=== PATIENT | female | born 1995 | race Caucasian/White ===

== ENCOUNTER → 2019-09-03 | Day surgery (SDC) | payer BC ==
[~2019-09-03] VITALS: Ht 157.5 cm; Wt 67.0 kg
[2019-09-03] VITALS (10 sets, daily range): BP systolic 104–119; BP diastolic 59–88
[~2019-09-03] MED LIST: ACET-1008 PO; BUPIVAcaine/PF 2.5 mg/ml (0.25%) 30ml vial ONE; HYDROcodone/acetaminophen 10/325mg tab PO ONE; HYDROmorphone inj. 0.5 MG/0.5 ML DISP.SYRIN IV PRN; IBUP-24 PO; LIDOcaine 2% (20mg/ml) 5ml vial ONE; acetaminophen 1,000mg/100ml IV 100 ML IV ONE; cefazolin/dext.iso 2gm/50ml 50 ML IV ONE; dexamethasone sod phosphate 4mg/ml inj. ONE; famotidine 20mg tablet PO ONE; fentaNYL/PF 50MCG/1 ML 2ML syringe IV ONE; fentaNYL/PF 50MCG/1 ML 2ML syringe ONE; hydrALAZINE 20mg/ml inj. IV PRN; ketorolac trometh. 30mg/ml inj. IV ONE; labetalol 20mg/4ml (5mg/ml) syringe IV PRN; meperidine/PF 50mg/ml syringe ONE; morphine 2 MG/ML inj. syringe IV PRN; morphine 4 MG/ML inj SYRINge IV PRN; morphine 4 MG/ML inj SYRINge ONE; naloxone 0.4 mg/ml inj ONE; ondansetron/PF 4mg/2ml inj IV PRN; ondansetron/PF 4mg/2ml inj ONE; propofol inj 20 ML IV ONE; ringers solution, lacted 1,000 ML IV SCH; sevoflurane 250ml liquid IH ONE
[2019-09-03] MEDS: ringers solution, lacted 1,000 ML IV SCH ×2 (12:14→12:52)
[2019-09-03 14:53] LABS: ALBUMIN 4.1 G/DL (3.4-5.0); ALBUMIN/GLOBULIN RATIO 1.1 (1.1-1.5); ALKALINE PHOSPHATASE 76 IU/L (46-116); BLOOD UREA NITROGEN 9 MG/DL (7-18); CALCIUM 9.5 MG/DL (8.5-10.1); CHLORIDE 104 MMOL/L (99-107); CREATININE 0.53 MG/DL (0.40-0.90); PRE OP ALT 21 U/L (30-65); PRE OP ANION GAP 9 (8-16); PRE OP AST 11 U/L (10-37); PRE OP BILIRUB, TOTAL 0.5 MG/DL (0.0-1.0); PRE OP GLUCOSE 79 MG/DL (70-104); PRE OP POTASSIUM 3.6 MMOL/L (3.4-5.1); PRE OP SODIUM 142 MMOL/L (135-145); TOTAL CARBON DIOXIDE 29.1 MMOL/L (24-32); eGFR > 90 ML/MIN
[2019-09-03 14:54] LABS: HCG SERUM QL NEGATIVE
--- NOTE | 2019-09-03 16:15 | NUR ---
Received from VICTOR HUGO Javed , accompanied by Anesthesiologist DR HERNANDEZ and report given by Anesthesiolgist. TACHYCARDIA R/T PAIN. C/O RIGHT FA 03/16 PAIN-MEDICATED IV. ABLE TO MOVE RIGHT FINGERS WELL WITH FINGERS PWD. RIGHT WRIST DSG WITH ACEWRAPS CDI. RT WRIST ELEVATED WITH ICE PRESENT.
[2019-09-03] MEDS: fentaNYL/PF 50MCG/1 ML 2ML syringe IV PRN ×4 (16:20→16:48)
--- NOTE | 2019-09-03 17:03 | NUR ---
DR WALKER GAVE AN ORDER FOR 100MCG OF FENTANYL IV. MEDICATION WAS INADVERTENTLY GIVEN UNDER DR HERNANDEZ'S FENTANYL ORDER. PLEASE SEE EMR
--- NOTE | 2019-09-03 17:45 | NUR ---
VSS. STATES ADEQUATE PAIN CONTROL. RIGHT FINGERS WARM WITH GOOD MOVEMENT AND MASTER PRINTER. RIGHT WRIST DSI C/D/I. D/C INSTRUCTIONS REVIEWED WITH PT AND MOTHER WHO VERBALIZED UNDERSTANDING. IV DC'D WITH CANNULA INTACT AND PRESSURE DSG APPLIED. D/C VIA WC WITH GLASSES. MOTHER PRESENT Addendum: 09/03/19 at [id number] by Minerva Bhatt RN Amended: Links added.
== END | disposition home or self-care (01) ==
LOC: PAS 11:50
PROVIDERS: ATTEND Orthopaedic Surgery Hand Surgery
DX: S52.571A Other intraarticular fracture of lower end of right radius, initial encounter for closed fracture (principal); Z88.1 Allergy status to other antibiotic agents; Z79.899 Other long term (current) drug therapy; Z72.89 Other problems related to lifestyle; V89.2XXA Person injured in unspecified motor-vehicle accident, traffic, initial encounter; Y93.89 Activity, other specified; Y92.89 Other specified places as the place of occurrence of the external cause; Y99.8 Other external cause status
CPT/HCPCS: 25609; 36415; 80053; 84703; C1713; J0131; J1100; J1885; J2001; J2175; J2310; J2405; J2704; J3010; J3490; J7120; A4215; A4618; A6449; A7000; J2270